=== PATIENT | male | born 1995 | race American Indian/Alaskan Native ===

== ENCOUNTER 2016-12-18 06:34 | Inpatient (IN) | payer SELFPAY ==
[2016-12-18] MEDS ORDERED: ATIVAN ONE (06:47)
[2016-12-18] MEDS ORDERED: KEPPRA 1,000 MG/NS 0.75% 100ML 1,000 MG/100 ML BAG IV ONE ×2 (06:50→06:55)
[2016-12-18] MEDS ORDERED: ATIVAN IV ONE (06:55)
--- NOTE | 2016-12-18 06:57 | Emergency Department Report ---
ED General Adult HPI - General Chief complaint: Seizure Stated complaint: SEIZURE Time Seen by Provider: 12/18/16 06:48 Source: family, EMS (ems notes not available at time of chart dictation), RN notes reviewed Mode of arrival: Stretcher Limitations: Altered Mental Status - History of Present Illness Initial comments: This is a 21-year-old male. He is previously unknown to me. He is brought to the hospital by EMS for multiple seizures. Patient is currently altered and postictal, history is obtained by speaking to the patient's mother. The patient's mother does not think that the patient has any chronic medical conditions, although she is not certain if he has a formal diagnosis of epilepsy. She does report that he has a history of asthma and obstructive sleep apnea, and typically lives in [place]. The patient's mother reports the patient has had 3 convulsive episodes prior to arrival. She reports that the patient was not feeling well, and was "sweating." This was yesterday. She reports that today, at approximately 4:30 AM, the patient had a generalized tonic-clonic event, and fell onto his left shoulder. She's not sure how long this lasted for. As per verbal report from the nurse, EMS indicated that the patient had 2 convulsive episodes in the field. As per verbal report from the patient's night nurse, the patient was somewhat conversant in the ER. However, the patient had another generalized tonic- clonic seizure, and was given Ativan, and 1 g of Keppra. After getting this medication, the patient was altered, pulling at his leads, and was at risk to fall. The patient was given diazepam, 5 mg 2. However, the patient was still pulling and restraints, and clearly a danger to himself and other patients and staff members. Furthermore, the patient's mother offers additional history, that the patient's has a history of Klonopin use/abuse, and she reports that she thinks that he takes at least 12-15 tablets daily. Given persistent altered mental status, sonorous breathing, patient is intubated for airway protection by myself. Laboratory studies, CT scan of the brain and cervical spine are pending. The patient was intubated using C-spine immobilization technique. Most likely diagnosis at this point in time is benzodiazepine withdrawal seizure. -: Sudden Severity scale (0 -10): 0 Consistency: intermittent Improves with: none Worsens with: none Associated Symptoms: confusion - Related Data Home Medications Medication Instructions Recorded Confirmed Last Taken No Known Home Medications [No 12/18/16 12/18/16 Unknown Reported Home Medications] Allergies Allergy/AdvReac Type Severity Reaction Status Date / Time No Known Allergies Allergy Unverified 12/18/16 07:29 ED Review of Systems ROS: Stated complaint: SEIZURE Other details as noted in HPI Comment: Unobtainable due to pts medical conditions ED Past Medical Hx - Past Medical History Previous Medical History?: Yes Hx Seizures: Yes Hx Asthma: Yes Additional medical history: sleep apnea - Surgical History Past Surgical History?: No - Social History Smoking Status: Current Every Day Smoker Substance Use Type: Alcohol - Medications Home Medications: Home Medications Medication Instructions Recorded Confirmed Last Taken Type No Known Home Medications [No 12/18/16 12/18/16 Unknown History Reported Home Medications] ED Physical Exam - General Limitations: Altered Mental Status General appearance: lethargic - Head Head exam: Present: atraumatic, normocephalic - Eye Eye exam: Present: normal appearance, other (pupils are small, but reactive to light. The left eye is initially seemed to be deviating to the left. However, after intubation, both eyes are midline, the pupils are midpoint, react to light equally) - ENT ENT exam: Present: normal exam, normal orophraynx, mucous membranes moist, normal external ear exam - Neck Neck exam: Present: normal inspection, full ROM. Absent: tenderness, meningismus - Respiratory Respiratory exam: Present: normal lung sounds bilaterally. Absent: respiratory distress, wheezes, rales, rhonchi, stridor, chest wall tenderness, accessory muscle use, decreased breath sounds, prolonged expiratory - Cardiovascular Cardiovascular Exam: Present: regular rate, normal rhythm, normal heart sounds. Absent: bradycardia, tachycardia, irregular rhythm, systolic murmur, diastolic murmur, rubs, gallop - GI/Abdominal GI/Abdominal exam: Present: soft, normal bowel sounds. Absent: distended, tenderness, guarding, rebound, rigid, pulsatile mass - Rectal Rectal exam: Present: deferred - Extremities Exam Extremities exam: Present: normal inspection, full ROM, normal capillary refill. Absent: pedal edema, joint swelling, calf tenderness - Back Exam Back exam: Present: normal inspection, full ROM. Absent: tenderness, CVA tenderness (R), CVA tenderness (L), muscle spasm, paraspinal tenderness, vertebral tenderness - Neurological Exam Neurological exam: Present: altered, other (patient is moving 4 extremities spontaneously prior to intubation.) - Psychiatric Psychiatric exam: Present: anxious - Skin Skin exam: Present: warm, dry, intact, normal color. Absent: rash ED Course Vital Signs 12/18/16 12/18/16 12/18/16 06:32 06:33 06:35 Temperature Pulse Rate 94 H 88 90 Respiratory 12 12 14 Rate Blood Pressure 139/87 139/87 139/87 Blood Pressure [Right] O2 Sat by Pulse 97 97 96 Oximetry 12/18/16 12/18/16 12/18/16 06:37 06:39 06:41 Temperature 98.3 F Pulse Rate 87 110 H 147 H Respiratory 12 14 18 Rate Blood Pressure 139/87 139/87 139/87 Blood Pressure 136/87 [Right] O2 Sat by Pulse 97 69 L Oximetry 12/18/16 12/18/16 12/18/16 06:43 06:44 06:45 Temperature Pulse Rate 128 H 116 H 112 H Respiratory 22 24 23 Rate Blood Pressure 180/87 180/87 169/91 Blood Pressure [Right] O2 Sat by Pulse 92 91 92 Oximetry 12/18/16 12/18/16 12/18/16 06:46 06:47 06:49 Temperature Pulse Rate 102 H 98 H Respiratory 20 26 H 28 H Rate Blood Pressure 169/91 169/91 Blood Pressure [Right] O2 Sat by Pulse 96 95 95 Oximetry 12/18/16 12/18/16 12/18/16 06:51 06:53 06:55 Temperature Pulse Rate 93 H 87 102 H Respiratory 31 H 29 H 33 H Rate Blood Pressure 169/91 169/91 169/91 Blood Pressure [Right] O2 Sat by Pulse 95 92 94 Oximetry 12/18/16 12/18/16 12/18/16 06:57 06:58 06:59 Temperature Pulse Rate 106 H 108 H 114 H Respiratory 18 18 17 Rate Blood Pressure 169/91 169/91 169/91 Blood Pressure [Right] O2 Sat by Pulse 94 94 Oximetry 12/18/16 12/18/16 12/18/16 07:05 07:45 08:24 Temperature Pulse Rate 99 H 94 H 95 H Respiratory 20 22 Rate Blood Pressure 129/86 Blood Pressure 117/80 130/82 [Right] O2 Sat by Pulse 100 97 Oximetry 12/18/16 12/18/16 12/18/16 12:24 12:55 12:56 Temperature Pulse Rate 100 H 79 80 Respiratory 20 20 Rate Blood Pressure 126/88 Blood Pressure [Right] O2 Sat by Pulse 100 100 Oximetry 12/18/16 12/18/16 12/18/16 12:57 12:59 13:00 Temperature Pulse Rate 80 81 80 Respiratory 20 20 20 Rate Blood Pressure 126/88 Blood Pressure 128/86 [Right] O2 Sat by Pulse 100 100 100 Oximetry 12/18/16 12/18/16 12/18/16 13:01 13:03 13:04 Temperature Pulse Rate 79 80 Respiratory 20 20 Rate Blood Pressure 126/88 126/88 Blood Pressure [Right] O2 Sat by Pulse 100 100 100 Oximetry 12/18/16 12/18/16 12/18/16 13:05 13:07 13:09 Temperature Pulse Rate 79 80 81 Respiratory 20 20 20 Rate Blood Pressure 126/88 126/88 126/88 Blood Pressure [Right] O2 Sat by Pulse 100 100 100 Oximetry 12/18/16 12/18/16 12/18/16 13:11 13:13 13:15 Temperature Pulse Rate 82 80 81 Respiratory 20 19 20 Rate Blood Pressure 126/88 126/88 126/88 Blood Pressure [Right] O2 Sat by Pulse 100 99 100 Oximetry 12/18/16 12/18/16 12/18/16 13:17 13:19 13:21 Temperature Pulse Rate 80 81 81 Respiratory 20 20 20 Rate Blood Pressure 126/88 126/88 126/88 Blood Pressure [Right] O2 Sat by Pulse 100 100 100 Oximetry 12/18/16 12/18/16 12/18/16 13:23 13:25 13:27 Temperature Pulse Rate 81 79 79 Respiratory 20 20 20 Rate Blood Pressure 126/88 126/88 129/84 Blood Pressure [Right] O2 Sat by Pulse 100 99 99 Oximetry 12/18/16 12/18/16 12/18/16 13:29 13:31 13:33 Temperature Pulse Rate 79 85 80 Respiratory 20 20 20 Rate Blood Pressure 129/84 129/84 129/84 Blood Pressure [Right] O2 Sat by Pulse 99 99 98 Oximetry 12/18/16 12/18/16 12/18/16 13:34 13:35 13:37 Temperature Pulse Rate 80 79 81 Respiratory 20 20 20 Rate Blood Pressure 135/88 135/88 135/88 Blood Pressure [Right] O2 Sat by Pulse 99 99 99 Oximetry 12/18/16 12/18/16 12/18/16 13:39 13:41 13:43 Temperature Pulse Rate 80 80 77 Respiratory 20 20 20 Rate Blood Pressure 135/88 135/88 135/88 Blood Pressure [Right] O2 Sat by Pulse 99 99 99 Oximetry 12/18/16 13:45 Temperature Pulse Rate 78 Respiratory 20 Rate Blood Pressure 135/88 Blood Pressure [Right] O2 Sat by Pulse 99 Oximetry - Reevaluation(s) Reevaluation #1: 12/18/16 08:12 differential diagnosis: Benzodiazepine withdrawal seizure, polysubstance abuse, status epilepticus, electrolyte derangement, pneumonia, urinary tract infection, intracranial injury, cervical spine injury Assessment and plan: 21-year-old male with reported history of chronic benzodiazepine dependence, with probable benzodiazepine withdrawal seizure. He is intubated by ga for airway protection, using cervical spine immobilization techniques. Initial chemistry demonstrates metabolic acidosis, most likely secondary to seizure. He is currently intubated, sedated and paralyzed. A noncontrast CT scan of the brain and cervical spine are pending. He has been loaded with antiepileptic drugs; keppra. We will contact critical care to arrange admission to the ICU. Repeat basic metabolic panel, arterial blood gas, urinalysis pending. Patient's family is informed. EKG is pending. Reevaluation #2: 12/18/16 12:37 CT scan of the brain and cervical spine are negative. I reevaluated this patient multiple times in the department. He required multiple doses of propofol, increased increments of his sedation, and hydromorphone for pain. He is hemodynamically stable at this time, has had no further convulsive episodes. The case is presented to the Hospital physician, Dr. Ponce, who accepts the patient to his service. - Consultations Consultation #1: 12/18/16 08:16 case is discussed with critical care physician, Dr. Austin, who agrees with placement into the ICU. - Intubation Time Out Performed: Yes Sedative: Ketamine Mg Given: 200 Paralytic: Rocuronium Mg Given: 100 Laryngoscope: Alivia Size: 4 Assist Device Used: Bougie ET Tube Size: 7.5 Tube Secured Location: teeth Tube Placement Confirmation: visualized tube passing t Patient Tolerated Procedure: well Intubation Complications: none Additional Comments: Patient is placed on a nasal cannula, 15 L/m. He receives [id number] ventilation. He is induced with ketamine, 200 mg, and then paralyzed with rocuronium, 100 mg. Direct laryngoscopy is performed, patient found to be somewhat anterior with an edematous uvula, therefore a bougie gum elastic device is placed, tracheal clicks are appreciated, and a 7.5 endotracheal tube was then inserted. Breath sounds are appropriate bilaterally, and there is appropriate Atrophy, change thereafter. ED Medical Decision Making - Lab Data Result diagrams: 12/18/16 07:08 12/18/16 08:13 Vital Signs 12/18/16 12/18/16 12/18/16 06:41 06:46 07:05 Temperature 98.3 F Pulse Rate 92 H 99 H Respiratory 20 20 20 Rate Blood Pressure 136/87 Blood Pressure 136/87 117/80 [Right] O2 Sat by Pulse 96 96 100 Oximetry 12/18/16 07:45 Temperature Pulse Rate 94 H Respiratory 22 Rate Blood Pressure Blood Pressure 130/82 [Right] O2 Sat by Pulse 97 Oximetry Lab Results 12/18/16 12/18/16 12/18/16 Range/Units 07:08 07:08 07:08 WBC 16.9 H (4.5-11.0) K/mm3 RBC 5.29 H (3.65-5.03) M/mm3 Hgb 15.6 H (11.8-15.2) gm/dl Hct 48.9 H (35.5-45.6) % MCV 93 (84-94) fl MCH 29 (28-32) pg MCHC 32 (32-34) % RDW 14.2 (13.2-15.2) % Plt Count 272 (140-440) K/mm3 Sodium 139 (137-145) mmol/L Potassium 4.0 (3.6-5.0) mmol/L Chloride 97.8 L (98-107) mmol/L Carbon Dioxide 4 L* (22-30) mmol/L Anion Gap 41 mmol/L BUN 11 (9-20) mg/dL Creatinine 1.1 (0.8-1.5) mg/dL Estimated GFR > 60 ml/min BUN/Creatinine Ratio 10.00 % Glucose 160 H (75-100) mg/dL Calcium 9.2 (8.4-10.2) mg/dL Total Bilirubin < 0.20 (0.1-1.2) mg/dL AST 25 (5-40) units/L ALT 23 (7-56) units/L Alkaline Phosphatase 60 (35-129) units/L Total Creatine Kinase 541 H (55-170) units/L Total Protein 8.7 H (6.3-8.2) g/dL Albumin 5.0 (3.9-5) g/dL Albumin/Globulin Ratio 1.4 % Salicylates < 0.3 L (2.8-20.0) mg/dL Plasma/Serum Alcohol (0-0.07) gm% 12/18/16 Range/Units 07:08 WBC (4.5-11.0) K/mm3 RBC (3.65-5.03) M/mm3 Hgb (11.8-15.2) gm/dl Hct (35.5-45.6) % MCV (84-94) fl MCH (28-32) pg MCHC (32-34) % RDW (13.2-15.2) % Plt Count (140-440) K/mm3 Sodium (137-145) mmol/L Potassium (3.6-5.0) mmol/L Chloride (98-107) mmol/L Carbon Dioxide (22-30) mmol/L Anion Gap mmol/L BUN (9-20) mg/dL Creatinine (0.8-1.5) mg/dL Estimated GFR ml/min BUN/Creatinine Ratio % Glucose (75-100) mg/dL Calcium (8.4-10.2) mg/dL Total Bilirubin (0.1-1.2) mg/dL AST (5-40) units/L ALT (7-56) units/L Alkaline Phosphatase (35-129) units/L Total Creatine Kinase (55-170) units/L Total Protein (6.3-8.2) g/dL Albumin (3.9-5) g/dL Albumin/Globulin Ratio % Salicylates (2.8-20.0) mg/dL Plasma/Serum Alcohol < 0.01 (0-0.07) gm% - EKG Data -: EKG Interpreted by Ia Rate: tachycardia - EKG Data When compared to previous EKG there are: previous EKG unavailable 12/18/16 09:44 normal sinus tachycardia at 100 bpm, normal intervals, normal axis, not morphologically consistent with STEMI. - Radiology Data Radiology results: pending, report reviewed, image reviewed X-ray the chest is negative. Endotracheal tube is in place. X-ray of the shoulder is negative. Noncontrast CT scan of the brain and cervical spine were negative for acute disease Critical Care Time: Yes Critical care time in (mins) excluding proc time.: 60 Critical care attestation.: If time is entered above; I have spent that time in minutes in the direct care of this critically ill patient, excluding procedure time. Critical Care Time: Critical care time includes multiple bedside evaluations, interpretation of laboratory studies, radiology studies, time spent managing a critically ill patient with multiple seizures, requiring multiple doses of benzodiazepines, noninvasive airway management, and consultation with [facility] medicine, critical care. This does not include procedure time. ED Disposition Clinical Impression: Benzodiazepine withdrawal with delirium Disposition: OP ADMIT IP TO THIS HOSP Is pt being admited?: Yes Condition: Critical Referrals: PRIMARY CARE,MD [Primary Care Provider] - 3-5 Days
[2016-12-18 07:26] LABS: Hematocrit 48.9 % (35.5-45.6); Hemoglobin 15.6 gm/dl (11.8-15.2); Mean Corpuscular HGB Conc 32 % (32-34); Mean Corpuscular Hemoglobin 29 pg (28-32); Mean Corpuscular Volume 93 fl (84-94); Platelet Count 272 K/mm3 (140-440); Red Blood Count 5.29 M/mm3 (3.65-5.03); Red Cell Distribution Width 14.2 % (13.2-15.2); White Blood Count 16.9 K/mm3 (4.5-11.0)
[2016-12-18] MEDS ORDERED: VALIUM ONE (07:27)
[2016-12-18] MEDS ORDERED: VALIUM IV ONE ×2 (07:31→07:39)
--- NOTE | 2016-12-18 07:36 | Admit Criteria Form ---
Admission Criteria Documentation: SUBSTANCE ABUSE Clinical Indications for Admission to Inpatient Care (Place 'X' for any and all applicable criteria): Admission is indicated due to ANY ONE of the following(1)(2)(3)(4)(5): [X]I. Delirium due to alcohol or sedative A withdrawal B ( Also use Delirium Criteria as appropriate)1,6,7 [ ]II. Alcohol or sedative withdrawal with high-risk indicator as manifested by ALL of the following1,3,6,7 [ ]a) Signs of withdrawal as indicated by ANY ONE of the following: [ ]i) Heart rate greater than 100 beats per minute [ ]ii) Nausea or vomiting [ ]iii) Other physical signs of alcohol or sedative withdrawal [ ]iv) Tremor [ ](v) Increased perspiration [ ]b) Elevated risk due to a historical or comorbid factor as indicated by ANY ONE of the following: [ ]i) History of delirium due to alcohol or sedative withdrawal [ ]ii) History of repetitive seizures due to alcohol or sedative withdrawal C [ ]iii) Intrinsic seizure disorder (epilepsy) [ ]iv) [ ]v) Comorbid medical condition that can be dangerously destabilized by alcohol or sedative withdrawal (eg, severe cardiac disease) [X]III. Severe alcohol or sedative withdrawal that is unmanageable at lower level of care, as manifested by ALL of the following1,3,6,7 [ ]a) Marked signs of withdrawal as indicated by ANY ONE of the following: [ ]i) Heart rate greater than 120 beats per minute [ ]ii) Vomiting [ ]iii) Grossly visible tremor [ ]iv) Profuse perspiration [ ]v) Temperature greater than 38.3 degrees C (101 degrees F) [ ]vi) Other marked physical signs of alcohol or sedative withdrawal [X]b) Signs of withdrawal which require inpatient treatment as indicated by ANY ONE of the following: [X]i) Inadequate response to pharmacotherapy in emergency department or other appropriate lower level of care [ ]ii) Lower level of care not feasible or appropriate (eg, unavailable or inappropriate to patient condition or treatment history) [ ]IV. Severely complicated opioid withdrawal that requires [id number] care as manifested by ALL of the following 1,4,7,11 [ ]a) Vomiting or diarrhea due to opioid withdrawal [ ]b) Marked dehydration or electrolyte abnormality that cannot be corrected (to near normal) in an emergency department or other ambulatory setting (eg, serum K<2.5 mEq/L , serum Na <130 mEq/L [ ]V. Acute toxicity or instability from substance use requiring inpatient care (eg, altered mental status, respiratory depression) that has had inadequate response to, or is judged inappropriate for, treatment at lower level of care (eg, emergency department, observation care) [ ]. Other inpatient medical or psychiatric care is needed due to risk or comorbidity as indicated by ALL of the following(18): [ ]a) Treatment is needed because of patient risk due to ANY ONE of the following: [ ]i) Medical condition (eg, severe cardiac disease) that requires 24-hour monitoring and treatment due to danger of destabilization by alcohol or sedative withdrawal is present [ ]ii) Imminent danger to self is present due to ANY ONE of the following(19)(20)(21): [ ]1) Imminent risk for recurrence of Suicide attempt or act of serious Harm to self is present as indicated by ALL of the following: [ ]A. There has been very recent Suicide attempt or deliberate act of serious Harm to self. [ ]B. There has not been Sufficient relief of the factors that precipitated the attempt or act. [ ]2) Current plan for suicide or serious Harm to self is present. [ ]3) Command auditory hallucinations for suicide or serious Harm to self are present. [ ]4) Patient has persistent Thoughts of suicide or serious Harm to self that cannot be adequately monitored at lower level of care due to ANY ONE of the following[E]: [ ]A. Insufficient behavioral care is available to meet patient needs (such as required provider or lower level facility is not available). [ ]B. Patient characteristics such as high impulsivity or unreliability are present. [ ]C. Environment does not support recovery. [ ]D. Ready access to lethal means [ ]iii) Imminent danger to others is present due to ANY ONE of the following(19)(23)(24): [ ]1) Imminent risk for recurrence of attempt to seriously Harm another is present as indicated by ALL of the following: [ ]A. There has been very recent attempt to seriously Harm another. [ ]B. There has not been Sufficient relief of factors that precipitated the attempt or act. [ ]2) Current plan for homicide or serious Harm to another is present. [ ]3) Command auditory hallucinations or paranoid delusions contributing to risk for homicide or serious Harm to another are present. [ ]4) Patient has persistent thoughts of homicide or serious Harm to another that cannot be adequately monitored at lower level of care because of ANY ONE of the following[E]: [ ]A. Insufficient behavioral care is available to meet patient needs (such as required provider or lower level facility is not available). [ ]B. High impulsivity or unreliability is present. [ ]C. Environment does not support recovery. [ ]D. Ready access to lethal means [ ]iv) Severe dysfunction in daily living related to substance use disorder as indicated by ANY ONE of the following(33): [ ]a) Extreme deterioration in social interactions (eg , threatening behaviors with little or no provocation) [ ]b) Complete withdrawal from all social interactions [ ]c) Complete neglect of self-care with associated impairment in physical status [ ]d) Extreme disruption in vegetative function (eg, life-sustaining functions such as eating) [ ]e) Complete inability to maintain any appropriate aspect of personal responsibility in any adult roles (eg, occupational, parental ) [ ]v) Other emotional, behavioral, or cognitive symptoms of sufficient severity to preclude ability to engage in recovery without 24-hour monitoring and treatment are present. [ ]vi) Patient requires monitoring due to substance use in combination with medical, psychiatric, or environmental factors that prevent adequate management at lower level of care as indicated by ALL of the following: [ ]1) Significant substance use effects, medical conditions, or psychiatric comorbidities are present as indicated by ANY ONE of the following [ ]A. Substance toxicity or withdrawal requires medical monitoring. [ ]B. Medical comorbidity requires medical monitoring for destabilization due to alcohol or sedative withdrawal. [ ]C. Emotional, behavioral, or cognitive symptoms of sufficient severity to limit or preclude ability to engage in treatment are present. [ ]2) Conditions, barriers, or environmental factors preventing treatment at lower level of care are present as indicated by ANY ONE of the following: [ ]A. Psychiatric comorbidity or opposition to treatment requires 24-hour setting to ensure adherence with medical treatment or adequate motivating interventions. [ ]B. Severe behavioral problems (eg, escalating relapse behaviors, acute psychiatric or substance use crisis, inability to recognize signs and symptoms of relapse ) require 24-hour setting for relapse prevention.[F] [ ]C. Living environment outside of 24-hour setting prevents recovery (eg, abuse, victimization, patient inability to cope). [ ]b Treatment situation and needs are appropriate for inpatient level ( instead of using lower level of care) as indicated by ANY ONE of the following( 25)(26)(27): [ ]i) Patient is unwilling to participate voluntarily and requires treatment (eg, legal commitment) in involuntary unit.(23) [ ]ii) Voluntary treatment at lower level is not feasible (eg, lower level care unavailable or inappropriate for patient condition). [ ]iii) Physical restraint, seclusion, or other involuntary control is needed (eg, actively violent patient for whom treatment in an involuntary unit is deemed necessary in accord with applicable medical and legal criteria).(23) [ ]iv) Qtywav-sih-suwob medical or nursing care to address symptoms and initiate interventions is required; specific need is identified. Extended stay beyond goal length of stay may be needed for: [ ]a) Onset of delirium [ ]b) Recurrent seizures [ ]c) Persistent severe alcohol or sedative withdrawal [ ]d) Persistent dangerous behavior The original [facility] content created by [employer] has been revised. The portions of the content which have been revised are identified through the use of italic text or in bold, and [facility] has neither reviewed nor approved the modified material. All other unmodified content is copyright [facility]. Please see references footnoted in the original [facility] edition 2016 Admission Criteria Met: Yes
[2016-12-18 07:41] LABS: Alanine Aminotransferase 23 units/L (7-56); Albumin/Globulin Ratio 1.4 %; Alkaline Phosphatase 60 units/L (35-129); Bilirubin,Total < 0.20 mg/dL (0.1-1.2); Blood Urea Nitrogen 11 mg/dL (9-20); Calcium 9.2 mg/dL (8.4-10.2); Chloride 97.8 mmol/L (98-107); Creatine Kinase 541 units/L (55-170); Glucose 160 mg/dL (75-100); Sodium 139 mmol/L (137-145); Total Protein 8.7 g/dL (6.3-8.2)
[2016-12-18 07:47] LABS: Anion Gap 41 mmol/L
[2016-12-18 07:55] LABS: Carbon Dioxide 4 mmol/L (22-30)
[2016-12-18] MEDS ORDERED: SUBLIMAZE ONE (08:01)
[2016-12-18] MEDS ORDERED: fentaNYL DRIP Premix 2,000 MCG/100 ML BAG IV ONE (08:01)
[2016-12-18] MEDS ORDERED: DIPRIVAN 10 MG/ML 1,000 MG/100 ML BOTTLE IV ONE (08:02)
[2016-12-18] MEDS ORDERED: NACL 0.9% 1000 ML 2,000 ML IV ONE (08:03)
[2016-12-18] MEDS ORDERED: SUBLIMAZE IV ONE (08:03)
[2016-12-18] MEDS ORDERED: ARTIFICIAL TEARS OPHTH OINT OU PRN (08:32)
[2016-12-18] MEDS ORDERED: VASELINE LIP THERAPY TP PRN (08:32)
[2016-12-18 08:37] LABS: Blood Urea Nitrogen 10 mg/dL (9-20); Calcium 8.7 mg/dL (8.4-10.2); Carbon Dioxide 13 mmol/L (22-30); Chloride 101.4 mmol/L (98-107); Glucose 160 mg/dL (75-100); Potassium 3.8 mmol/L (3.6-5.0); Sodium 135 mmol/L (137-145)
[2016-12-18 08:39] LABS: Anion Gap 24 mmol/L
--- NOTE | 2016-12-18 08:47 | XRay Report ---
AP CHEST: HISTORY: Seizure An endotracheal tube has been inserted which terminates 6 cm superior to the martinez. AP view of the chest demonstrates a normal mediastinal and cardiac contour with clear lungs and normal bony and soft tissue structures. IMPRESSION: Unremarkable AP chest.
--- NOTE | 2016-12-18 08:48 | XRay Report ---
LEFT SHOULDER, one view: History: Left shoulder pain. Single AP view of the left shoulder demonstrates no acute osseous injury or joint pathology. IMPRESSION: No abnormality identified.
[2016-12-18 09:00] LABS: Basophils % (Manual) 0 % (0.0-1.8); Blastocytes % (Manual) 0 %; Burr Cells Few; Diff Status Complete
[2016-12-18] MEDS: DIPRIVAN 10 MG/ML 1,000 MG/100 ML BOTTLE IV SCH ×5 (09:00→23:00)
[2016-12-18] MEDS: fentaNYL DRIP Premix 2,000 MCG/100 ML BAG IV SCH ×2 (09:00→15:52)
[2016-12-18 10:03] LABS: ISTAT Base Excess -10; ISTAT HCO3 18.4; ISTAT PCO2 51.2 (35-45); ISTAT PH 7.163 (7.35-7.45); ISTAT PO2 222 (80-105); ISTAT SO2 100; ISTAT TCO2 20
[2016-12-18 10:28] LABS: Urine Drugs of Abuse Note Disclamer
[2016-12-18 10:39] LABS: Bacteria,Urine 2+ /HPF (Negative); Bilirubin,Urine NEG (Negative); Blood,Urine MOD (Negative); Ketones,Urine TR mg/dL (Negative); Leukocyte Esterase,Urine NEG (Negative); Mucus,Urine FEW /HPF; Nitrite,Urine NEG (Negative); RBC,Urine < 1.0 /HPF (0.0-6.0); Urobilinogen,Urine < 2.0 mg/dL (<2.0)
--- NOTE | 2016-12-18 10:39 | Cat Scan Report ---
CT HEAD WITHOUT CONTRAST INDICATION: Seizure. COMPARISON: None similar. FINDINGS: Noncontrast head CT demonstrates cavum septum pellucidum and vergae. Otherwise unremarkable ventricles and sulci without acute infarct, hemorrhage, mass effect or midline shift. Exam in part limited due to patient positioning and slight artifact. No abnormal extra-axial fluid collections. Normal posterior fossa with preserved basilar cisterns. Normal eye globes. Severe, near completely opacified right maxillary sinus. Right greater than left ethmoid air cell opacification as well. Approximately 1.7 cm left sphenoid sinus mucosal thickening or retention cyst. Slight right sphenoid sinusitis anteriorly as well. Clear remainder imaged paranasal sinuses and mastoid air cells. 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 Opacification of the nasal passages posteriorly and the nasopharynx also noted in this intubated patient. Extensive bilateral external auditory canal debris may be directly visualized. Intact calvarium. Normal scalp. CONCLUSION: No acute intracranial CT abnormality with sinus disease and intubation noted with few other incidental findings, as above. Please correlate. Thank you for the opportunity to participate in this patient's care.
[2016-12-18] MEDS ORDERED: DILAUDID ONE ×2 (10:53→17:49)
--- NOTE | 2016-12-18 11:10 | Cat Scan Report ---
CT CERVICAL SPINE WITHOUT CONTRAST INDICATION: Seizure. COMPARISON: None similar. FINDINGS: Noncontrast axial, sagittal and coronal CT reconstructions of the cervical spine demonstrate normal visualized intracranial appearance. Assessment of the spinal canal from C6 inferiorly compromised due to artifact from shoulder soft tissues. Left sphenoid sinus mucosal thickening. Clear included mastoid air cells. Exam limited due to patient positioning/head tilt. ET tube with some surrounding nasopharyngeal fluid noted. Symmetric occipital condyles. Normal anterior and posterior arches of C1. Intact craniocervical articulation with normal predental space, prevertebral soft tissues, vertebral body stature, disc heights and posterior elements. Straightening noted, possibly positional versus spasm. No large disc protrusion at any level suspected. Normal included thyroid. Clear visualized lung apices. CONCLUSION: Cervical spine straightening without acute fracture and few other incidental findings, as above. Please correlate. Thank you for the opportunity to participate in this patient's care.
--- NOTE | 2016-12-18 13:01 | History and Physical Report ---
History of Present Illness Chief complaint: Unresponsive History of present illness: 21 YO Male with Asthma Mild Intermittent, Seizure disorder, Nicotine Dependence present to ED for evaluation. Pt unable to provide history, but history provided by ED staff, and patient mother who is at the bedside during exam and interview. Pt mother reports 3 episodes of generalized tonic clonic seizures- the first of which was observed at 0430hrs. Te seizure resulted in patient losing consciousness, and falling from a standing position and landing on his left shoulder. Pt had two additional witnessed seizures as per EMS during transport. Pt seen and evaluated in ED and found to be in respiratory distress, encephalopathic, and unable to protect his airway. Pt intubated and placed on vent support. Past History Past Medical History: seizures Past Surgical History: No surgical history, Other (reviewed) Social history: single, lives with family, smoking, prescription drug abuse. denies: alcohol abuse Family history: hypertension Medications and Allergies Allergies Allergy/AdvReac Type Severity Reaction Status Date / Time No Known Allergies Allergy Unverified 12/18/16 07:29 Home Medications Medication Instructions Recorded Confirmed Last Taken Type No Known Home Medications [No 12/18/16 12/18/16 Unknown History Reported Home Medications] Active Meds: Active Medications Hydrophilic Ointment (Vaseline Lip Therapy) 1 applic TP Q2HR PRN PRN Reason: Dry Lips Fentanyl Citrate (Fentanyl Drip Premix) 2,000 mcg in 100 mls @ 4.082 mls/hr IV TITR DANIELE; 1 MCG/KG/HR PRN Reason: Protocol Propofol (Diprivan 10 Mg/Ml) 1,000 mg in 100 mls @ 2.449 mls/hr IV TITR DANIELE; 5 MCG/KG/MIN PRN Reason: Protocol Multi-Ingred Cream/Lotion/Oil/Oint (Artificial Tears Ophth Oint) 1 applic OU Q4HR PRN PRN Reason: Dry Eye(s) Review of Systems ROS unobtainable: due to mental status Exam - Constitutional Vitals: Temp Pulse Resp BP Pulse Ox 98.3 F 95 H 22 129/86 97 12/18/16 06:41 12/18/16 08:24 12/18/16 07:45 12/18/16 08:24 12/18/16 07:45 General appearance: Present: severe distress - EENT Eyes: Present: PERRL ENT: hearing intact, clear oral mucosa - Neck Neck: Present: supple, normal ROM - Respiratory Respiratory effort: labored Respiratory: bilateral: diminished - Cardiovascular Heart Sounds: Present: S1 & S2. Absent: rub, click - Extremities Extremities: pulses symmetrical, No edema Peripheral Pulses: within normal limits - Abdominal General gastrointestinal: Present: soft, non-tender, non-distended, normal bowel sounds Male genitourinary: Present: normal - Rectal Rectal Exam: normal exam-external/orifice - Integumentary Integumentary: Present: clear, warm, dry - Musculoskeletal Musculoskeletal: generalized weakness - Psychiatric Psychiatric: no intact judgment & insight, no memory intact - Neurologic Neurologic: CNII-XII intact, moves all extremities Results - Labs CBC & Chem 7: 12/18/16 07:08 12/18/16 08:13 Labs: Abnormal lab results 12/18/16 12/18/16 12/18/16 Range/Units 07:08 07:08 07:08 WBC 16.9 H (4.5-11.0) K/mm3 RBC 5.29 H (3.65-5.03) M/mm3 Hgb 15.6 H (11.8-15.2) gm/dl Hct 48.9 H (35.5-45.6) % Monocytes % (Manual) 16.0 H (0.0-7.3) % Seg Neutrophils # Man 11.5 H (1.8-7.7) K/mm3 Monocytes # (Manual) 2.7 H (0.0-0.8) K/mm3 POC ABG pH (7.35-7.45) POC ABG pCO2 (35-45) POC ABG pO2 (80-105) Sodium (137-145) mmol/L Chloride 97.8 L (98-107) mmol/L Carbon Dioxide 4 L* (22-30) mmol/L Glucose 160 H (75-100) mg/dL Total Creatine Kinase 541 H (55-170) units/L Total Protein 8.7 H (6.3-8.2) g/dL Salicylates < 0.3 L (2.8-20.0) mg/dL 12/18/16 12/18/16 Range/Units 08:13 09:32 WBC (4.5-11.0) K/mm3 RBC (3.65-5.03) M/mm3 Hgb (11.8-15.2) gm/dl Hct (35.5-45.6) % Monocytes % (Manual) (0.0-7.3) % Seg Neutrophils # Man (1.8-7.7) K/mm3 Monocytes # (Manual) (0.0-0.8) K/mm3 POC ABG pH 7.163 L (7.35-7.45) POC ABG pCO2 51.2 H (35-45) POC ABG pO2 222 H (80-105) Sodium 135 L (137-145) mmol/L Chloride (98-107) mmol/L Carbon Dioxide 13 L D (22-30) mmol/L Glucose 160 H (75-100) mg/dL Total Creatine Kinase (55-170) units/L Total Protein (6.3-8.2) g/dL Salicylates (2.8-20.0) mg/dL Assessment and Plan - Patient Problems (1) Acute respiratory failure Current Visit: Yes Status: Acute Qualifiers: Respiratory failure complication: R Plan to address problem: Pulmonary consulted: wean vent as tolerated, ABG in am, nebs, aspiration precautions, pulmonary toilet, (2) Aspiration pneumonia Current Visit: Yes Status: Acute Qualifiers: Aspiration pneumonia type: A Laterality: L Lung location: L Plan to address problem: Pneumonia protocol: IV abx, blood cultures, sputum cultures, supplemental oxygen , nebs, aspiration precautions, (3) Status epilepticus Current Visit: Yes Status: Acute Plan to address problem: supportive care, keppra loading, neuro checks. (4) Sepsis Current Visit: Yes Status: Acute Qualifiers: Sepsis type: S Plan to address problem: Sepsis protocol: IV abx, ivf, monitor uop q shift, serial lactate levels, monitor uop q shift, (5) Toxic encephalopathy Current Visit: Yes Status: Acute Plan to address problem: treat sepsis, IV abx, monitor ivf, supportive care. (6) Metabolic acidosis Current Visit: Yes Status: Acute Plan to address problem: IVF replacement, treat sepsis, supportive care. (7) DVT prophylaxis Current Visit: Yes Status: Acute
[2016-12-18] MEDS ORDERED: NACL 0.9% 1000 ML IV ONE (13:19)
[2016-12-18] MEDS ORDERED: NACL 0.9% 1000 ML 1,000 ML ONE (15:23)
[2016-12-18] MEDS ORDERED: DILAUDID IV ONE ×2 (16:57→19:20)
[2016-12-18] MEDS: UNASYN/NS 3 GM/100 ML 3 GM/100 ML BAG IV SCH (20:40)
[2016-12-18 21:19] LABS: Bilirubin,Urine NEG (Negative); Blood,Urine MOD (Negative); Ketones,Urine TR mg/dL (Negative); Leukocyte Esterase,Urine NEG (Negative); Nitrite,Urine NEG (Negative); Uric Acid Crystals,Urine FEW; Urobilinogen,Urine < 2.0 mg/dL (<2.0); WBC,Urine < 1.0 /HPF (0.0-6.0)
--- NOTE | 2016-12-18 23:27 | XRay Report ---
FINAL REPORT PROCEDURE: XR ABDOMEN 1V AP TECHNIQUE: Abdominal radiograph, single supine AP view. HISTORY: feeding tube placement COMPARISON: No prior studies are available for comparison. FINDINGS: Bowel gas pattern:Nonobstructive. Masses or calcifications:None. Bony structures:No significant abnormality. Other:None. The NG tube is in the stomach. IMPRESSION: No acute abnormality. NG tube is in the stomach.
[2016-12-19] MEDS: UNASYN/NS 3 GM/100 ML 3 GM/100 ML BAG IV SCH ×3 (00:05→14:10)
[2016-12-19] MEDS: DIPRIVAN 10 MG/ML 1,000 MG/100 ML BOTTLE IV SCH ×3 (03:05→09:49)
[2016-12-19 05:05] LABS: ISTAT Base Excess -7; ISTAT HCO3 18.8; ISTAT PCO2 37.1 (35-45); ISTAT PH 7.313 (7.35-7.45); ISTAT PO2 202 (80-105); ISTAT SO2 100; ISTAT TCO2 20
[2016-12-19] MEDS ORDERED: DIPRIVAN 10 MG/ML IV ONE (05:12)
[2016-12-19] MEDS ORDERED: APRESOLINE IV PRN (11:06)
--- NOTE | 2016-12-19 12:38 | Consultation ---
History of Present Illness Consult date: 12/19/16 Requesting physician: KAL BOWSER Reason for consult: other (seizure and airway protection) History of present illness: 21 y/o with concern for benzo abuse, admitted after 3-4 tonic clonic seizures. PER ED physician, patient had a seizure in the ED and was given diazepam. Patient was somnolent and likely post-ictal so electively intubated by ED. Placed on propofol and admitted to ICU. No further seizure therapy last night while on diprovan. Past History Past Medical History: seizures Past Surgical History: No surgical history, Other (reviewed) Social history: single, lives with family, smoking, prescription drug abuse. denies: alcohol abuse Family history: hypertension Medications and Allergies Allergies Allergy/AdvReac Type Severity Reaction Status Date / Time No Known Allergies Allergy Unverified 12/18/16 07:29 Home Medications Medication Instructions Recorded Confirmed Last Taken Type No Known Home Medications [No 12/18/16 12/18/16 Unknown History Reported Home Medications] Active Meds: Active Medications Hydralazine HCl (Apresoline) 10 mg IV Q4HR PRN PRN Reason: Hypertension Hydrophilic Ointment (Vaseline Lip Therapy) 1 applic TP Q2HR PRN PRN Reason: Dry Lips Propofol (Diprivan 10 Mg/Ml) 1,000 mg in 100 mls @ 2.449 mls/hr IV TITR DANIELE; 5 MCG/KG/MIN PRN Reason: Protocol Last Titration: 12/19/16 11:49 Dose: 0 mcg/kg/min, 0 mls/hr Ampicillin Sodium/Sulbactam Sodium (Unasyn/Ns 3 Gm/100 Ml) 3 gm in 100 mls @ 100 mls/hr IV Q6HR DANIELE PRN Reason: Protocol Last Admin: 12/19/16 06:00 Dose: 100 mls/hr Multi-Ingred Cream/Lotion/Oil/Oint (Artificial Tears Ophth Oint) 1 applic OU Q4HR PRN PRN Reason: Dry Eye(s) Review of Systems ROS unobtainable: due to endotracheal tube, due to mental status Physical Examination Vital signs: Vital Signs Pulse Resp BP Pulse Ox 94 H 12 139/87 97 12/18/16 06:32 12/18/16 06:32 12/18/16 06:32 12/18/16 06:32 General appearance: no acute distress Eyes: non-icteric ENT: other (orally intubated) Neck: supple Ascultation: Bilateral: clear Percussion: Bilateral: not dull Tactile fremitus: Bilateral: normal Cardiovascular: regular rate and rhythm Gastrointestinal: normoactive bowel sounds, soft, non-tender Results - Laboratory Findings CBC and BMP: 12/18/16 07:08 12/18/16 08:13 ABG POC ABG pH 7.313 (7.35-7.45) L 12/19/16 04:58 POC ABG pCO2 37.1 (35-45) 12/19/16 04:58 POC ABG pO2 202 (80-105) H 12/19/16 04:58 POC ABG HCO3 18.8 12/19/16 04:58 POC ABG Total CO2 20 12/19/16 04:58 POC ABG O2 Sat 100 12/19/16 04:58 Abnormal lab findings: Abnormal Labs 12/19/16 04:58 POC ABG pH 7.313 L POC ABG pO2 202 H - Diagnostic Findings Chest x-ray: image reviewed (clear CXR) Assessment and Plan 21 y/o male intubated for airway protection, with seizures of unknown etiology. 1. Needs neuro consult 2. Suggest adding scheduled anti-epileptic therapy 3. Will stop diprovan and extubate 4. Monitor in ICU overnight, likely transfer out in AM
[2016-12-19 16:21] VITALS: BP 138/93
--- NOTE | 2016-12-19 17:13 | Consultation ---
History of Present Illness - Reason for Consult Consult date: 12/19/16 Reason for consult: psychiatric evaluation Requesting physician: KAL BOWSER - Chief Complaint Chief complaint: "I had a seizure" 21 year old male seen for psychiatric evaluation in the ICU. Per the record, in the ER he was found to be in respiratory distress, encephalopathic, and unable to protect his airway following seizure activity. Pt intubated and placed on vent support. At the time of this consult, he was recently extubated. He was able to provide history. He is alert and oriented x 4. He reports a history of seizures and the last time was 6 months ago. He denies taking medications for seizures. He denies a history of psychiatric illness and denies a history of depressive, panic/anxiety, or psychotic symptoms. Although, he states marijuana allows him "to stay sane." He smokes it daily. He denies use of synthetic substances. He reports drinking alcohol every 1-2 weeks, socially, and states he does not become intoxicated. He denies recreational use of benzodiazepines. His UDS is positive for THC. He recently was charged with possession of marijuana. His court date is 12/23/16. He is visiting from [place]. He is staying with his mother and father. He was raised by his aunt. He denies SI or HI. Medications and Allergies Allergies Allergy/AdvReac Type Severity Reaction Status Date / Time No Known Allergies Allergy Unverified 12/18/16 07:29 Home Medications Medication Instructions Recorded Confirmed Last Taken Type No Known Home Medications [No 12/18/16 12/18/16 Unknown History Reported Home Medications] Active Meds: Active Medications Hydralazine HCl (Apresoline) 10 mg IV Q4HR PRN PRN Reason: Hypertension Hydrophilic Ointment (Vaseline Lip Therapy) 1 applic TP Q2HR PRN PRN Reason: Dry Lips Propofol (Diprivan 10 Mg/Ml) 1,000 mg in 100 mls @ 2.449 mls/hr IV TITR DANIELE; 5 MCG/KG/MIN PRN Reason: Protocol Last Titration: 12/19/16 11:49 Dose: 0 mcg/kg/min, 0 mls/hr Ampicillin Sodium/Sulbactam Sodium (Unasyn/Ns 3 Gm/100 Ml) 3 gm in 100 mls @ 100 mls/hr IV Q6HR DANIELE PRN Reason: Protocol Last Admin: 12/19/16 14:10 Dose: 100 mls/hr Multi-Ingred Cream/Lotion/Oil/Oint (Artificial Tears Ophth Oint) 1 applic OU Q4HR PRN PRN Reason: Dry Eye(s) Past psychiatric history - Past Medical History Past Medical History: seizures, other (asthma) - Social History Social history: single, lives with family Mental Status Exam - Vital signs Last Vital Signs Temp 98.4 F 12/19/16 07:55 Pulse 97 H 12/19/16 15:45 Resp 27 H 12/19/16 15:45 BP 138/93 12/19/16 15:45 Pulse Ox 97 12/19/16 15:45 - Exam Orientation: time, place, person Affect: normal Mood: calm Thought content: other (no SI, no HI) Thought Process: Intact Perceptions: none Speech: normal rate and pattern Concentration: focused Motor activity: lethargic (extubated one hour earlier before interview) Level of consciousness: alert Memory: Intact Sleep Symptoms: None Interaction: cooperative Results Result Diagrams: 12/18/16 07:08 12/18/16 08:13 Abnormal lab results 12/19/16 Range/Units 04:58 POC ABG pH 7.313 L (7.35-7.45) POC ABG pO2 202 H (80-105) All other labs normal. Assessment and Plan Assessment and plan: Impression: No alcohol use disorder identified. sedative/hypnotic use not reported cannabis use disorder (daily use as a coping mechanism) No risk of harm to self or others identified. He is able to attend to his ADLs He smokes marijuana daily but denies other illicit substance use. He denies use of benzodiazepines, either prescribed or not prescribed. Alcohol use is every 1- 2 weeks socially. States he does not drink daily and does not become intoxicated when he drinks. Discussed outpatient mental health treatment to improve coping skills. He declines. Recommendation: Outpatient mental health referrals are recommended
--- NOTE | 2016-12-19 17:23 | Discharge Summary ---
Providers - Providers Date of Admission: 12/18/16 13:20 Date of discharge: 12/19/16 Attending physician: TEZ WEBB MD Primary care physician: SYSTEMS SOFTWARE ENGINEER Hospitalization Reason for admission: seizure disorder, acute hypoxic respiratory failure Condition: Critical Hospital course: 21 YO Male with Asthma Mild Intermittent, Seizure disorder, Nicotine Dependence brought to ED for evaluation. Pt unable to provide history, but history provided by ED staff, and patient mother who is at the bedside during exam and interview. Pt mother reports 3 episodes of generalized tonic clonic seizures- the first of which was observed at 0430hrs. The seizure resulted in patient losing consciousness, and falling from a standing position and landing on his left shoulder. Pt had two additional witnessed seizures as per EMS during transport. Pt seen and evaluated in ED and found to be in respiratory distress, encephalopathic, and unable to protect his airway. Pt intubated and placed on vent support. Patient was intubated, on mechanical ventilation and admitted to ICU. He was managed for seizure, empiric antibiotics for suspected aspiration pneumonia. This morning the patient was extubated put on po keppra. The patient was alert and oriented, he was able to make his own decision. He was counselled about the risk benefits and he verbalized that he understood. He sign AMA and went home. Disposition: DC-07 LEFT AGAINST MED ADVICE Time spent for discharge: 31 minutes - Discharge Diagnoses (1) Acute respiratory failure Status: Acute Qualifiers: Respiratory failure complication: R (2) Aspiration pneumonia Status: Acute Qualifiers: Aspiration pneumonia type: A Laterality: L Lung location: L (3) Benzodiazepine withdrawal with delirium Status: Acute (4) Metabolic acidosis Status: Acute (5) Sepsis Status: Acute Qualifiers: Sepsis type: S (6) Status epilepticus Status: Acute (7) Toxic encephalopathy Status: Acute Core Measure Documentation - Palliative Care Palliative Care/ Comfort Measures: Not Applicable - Core Measures Any of the following diagnoses?: none Exam - Physical Exam Narrative exam: Not in cardiopulmonary distress. The patient appeared well nourished and normally developed. Vital signs as documented. Head exam is unremarkable. No scleral icterus . Neck is without jugular venous distension, thyromegaly, or carotid bruits. Lungs are clear to auscultation. Cardiac exam reveals regular rate and Rhythm. First and second heart sounds normal. No murmurs, rubs or gallops. Abdominal exam reveals normal bowel sounds, no masses, no organomegaly and no aortic enlargement. Extremities are nonedematous and both femoral and pedal pulses are normal. BANQUET COOK: Alert and oriented 3. No focal weakness. - Constitutional Vitals: Temp Pulse Resp BP Pulse Ox 98.4 F 97 H 27 H 138/93 97 12/19/16 07:55 12/19/16 15:45 12/19/16 15:45 12/19/16 15:45 12/19/16 15:45 Plan Activity: no restrictions Weight Bearing Status: Full Weight Bearing Diet: regular (patient left AMA.) Follow up with: PRIMARY CARE, [Primary Care Provider] - 3-5 Days Forms: Accompanied Note
== END 2016-12-19 17:28 | disposition left against medical advice (07) | DRG 871 ==
LOC: ED 06:34 → CC1 13:20
PROVIDERS: ADMIT Internal Medicine; ATTEND Internal Medicine
PROC: 4A033R1 Measurement of Arterial Saturation, Peripheral, Percutaneous Approach (ICD-10-PCS; principal; 2016-12-18)
PROC: 5A1945Z Respiratory Ventilation, 24-96 Consecutive Hours (ICD-10-PCS; 2016-12-18)
PROC: 0BH17EZ Insertion of Endotracheal Airway into Trachea, Via Natural or Artificial Opening (ICD-10-PCS; 2016-12-18)
DX: A41.9 Sepsis, unspecified organism (principal); J96.00 Acute respiratory failure, unspecified whether with hypoxia or hypercapnia; J69.0 Pneumonitis due to inhalation of food and vomit; G92 Toxic encephalopathy; F13.231 Sedative, hypnotic or anxiolytic dependence with withdrawal delirium; E87.2 Acidosis; F19.931 Other psychoactive substance use, unspecified with withdrawal delirium; G47.33 Obstructive sleep apnea (adult) (pediatric); J45.20 Mild intermittent asthma, uncomplicated; G40.909 Epilepsy, unspecified, not intractable, without status epilepticus; F17.210 Nicotine dependence, cigarettes, uncomplicated; Z82.49 Family history of ischemic heart disease and other diseases of the circulatory system; Z72.89 Other problems related to lifestyle; F12.99 Cannabis use, unspecified with unspecified cannabis-induced disorder; Z71.89 Other specified counseling; Z53.21 Procedure and treatment not carried out due to patient leaving prior to being seen by health care provider
CPT/HCPCS: 36415; 36600; 70450; 71010; 72125; 74000; 80048; 80053; 80307; 80320; 81001; 82550; 82803; 85007; 85025; 86850; 86900; 86901; 87070; 87086; 87205; 93005; 93010; 94002; 94003; 94760; 96361; 96365; 96375; 99285; G0480; J0295; J0360; J1170; J1953; J2060; J2704; J3010; J3360; J7030